=== PATIENT | male | born 1995 | race Caucasian/White ===

== ENCOUNTER 2024-02-15 14:21 | Emergency (ER) | payer MEDICAID, SELFPAY ==
[2024-02-15 14:23] VITALS: BP 99/61; PULSE 102; RESP 18; TEMP 38; O2SAT 98; BMI 21.0
--- NOTE | 2024-02-15 14:51 | EDS_ITS ---
HPI History of Present Illness Chief Complaint: Sore Throat Informant: patient and parent Narrative Narrative: 28 year old male presenting to ED with concern for sorethroat. Pt began with sore throat on Thursday and has worsening. He developed fever. Last tylenol about 1 hour ago. No cough or rash. Pt went to urgent care where he was seen and there was concern for [employer]. PFSH PFSH Medical History Thyroid cancer Home Medications ?Medication ?Instructions ?Recorded ?Last Taken ?Type amoxicillin 400 mg-potassium 10.9375 ml PO Q12H 10 days #218.75 02/15/24 Unknown Rx clavulanate 57 mg/5 mL oral mL suspension Allergy/AdvReac Type Severity Reaction Status Date / Time No Known Allergies Allergy Verified 02/15/24 14:23 Surgical History History of thyroidectomy Social History Smoking Status: Current every day smoker tobacco type: cigarettes and e- cigarettes ROS ROS ED Constitutional Constitutional ED: Reports fever(s); Denies chills or weight loss Eyes Eyes: Denies change in vision or diplopia ENT ENT ED: Reports sore throat; Denies ear pain or rhinorrhea Cardiovascular Cardiovascular: Denies chest pain, orthopnea, palpitations or racing heartbeat Respiratory/Chest Respiratory/Chest: Denies cough, dyspnea or orthopnea Gastrointestinal Gastrointestinal: Denies abdominal pain, diarrhea, nausea or vomiting Genitourinary Genitourinary ED: Denies dysuria, hematuria or urinary frequency Musculoskeletal Musculoskeletal: Denies arthralgias or myalgias Integumentary Denies abscess or rash Neurologic Neurologic: Denies headache(s) or weakness Psychiatric Psychiatric: Denies anxiety, depression, suicidal ideation or suicidal thoughts Endocrine Endocrinology: Denies polydipsia, polyphagia or polyuria Allergic/Immunologic Allergic/Immunologic ED: Denies mouth swelling, tongue swelling or urticaria EXAM Physical Exam Const Vital Signs: 02/15/24 14:23 02/15/24 14:23 02/15/24 15:22 Temperature 100.4 F H 100.4 F H 100.4 F H Temperature Source Oral Oral Oral Pulse Rate 102 H 102 H 100 Respiratory Rate 18 18 16 Blood Pressure 99/61 99/61 101/67 Blood Pressure Mean 73 73 78 Pulse Ox 98 98 97 Oxygen Delivery Method Room Air Room Air Room Air 02/15/24 15:22 Temperature 100.4 F H Temperature Source Oral Pulse Rate 100 Respiratory Rate 16 Blood Pressure 101/67 Blood Pressure Mean 78 Pulse Ox 97 Oxygen Delivery Method Room Air Positive well nourished and well developed General Appearance ED: well developed HEENT Reports normocephalic, head/scalp atraumatic, TM's clear and moist mucous me mbranes HEENT Narrative: R>L tonisllar swelling with bilateral tonsillar exudates. No [employer] or RPA seen. No drooling. Tonsils do not touch uvula. No palatal petechiae. Scattered anterior lymph nodes <1 cm and mobile. Tympanic Membrane ED: Yes TM's clear Eyes PERRL and EOMs intact bilaterally Neck no lymphadenopathy, supple and no JVD Resp normal respiratory effort and clear to auscultation bilaterally Cardio regular rate, regular rhythm and no murmurs GI normal to inspection, nondistended, normoactive bowel sounds and non-tender Palpation: soft Back/Spine no CVA tenderness and normal ROM Extremity normal to inspection General Extremety ED: Negative for edema General Extremity: Negative for edema Neuro oriented x3 and CN's II-XII intact bilaterally Sensorium / Orientation: alert Motor Exam: strength 5/5 throughout Psych mental status grossly normal Mood & Affect: Negative for depressed or tearful Skin no rashes or lesions noted and no wounds MDM MDM MDM Narrative Medical decision making narrative: Differential diagnosis includes but not limited to [employer]/RPA, mononucleosis, tonsillitis, Patient's white count 11.9 hemoglobin 11.4 platelet count of 188. Monocytes 8.6 neutrophils 83.8 lymphocytes 7.0 monoscreen is negative (this is day 4 of illness) rapid strep was obtained which is negative. Patient received IV Decadron and Toradol. He also received an oral dose of Augmentin. Clinically I think the patient has a bacterial tonsillitis. Continue Tylenol or Motrin for fever control encourage oral hydration History & Record Review Discussion w/independent historian: Patient and Family Lab Data Attestation: I reviewed the patient's lab results. Labs: Laboratory Results - last 24 hr 02/15/24 02/15/24 14:36 14:45 WBC 11.9 H RBC 3.66 L Hgb 11.4 L Hct 33.6 L MCV 91.8 MCH 31.1 MCHC 33.9 RDW Std Deviation 39.1 RDW Coeff of Mike 11.5 L Plt Count 188 MPV 9.8 Immature Gran % (Auto) 0.400 Neut % (Auto) 83.8 H Lymph % (Auto) 7.0 L Addison % (Auto) 8.6 Eos % (Auto) 0.0 Baso % (Auto) 0.2 Absolute Neuts (auto) 10.0 H Absolute Lymphs (auto) 0.83 Nucleated RBC % 0 Monoscreen Negative Discharge Plan Triage Chief Complaint: Sore Throat ED Provider: Sourav Jama Dx/Rx/DC Orders Clinical Impression: Acute tonsillitis, Throat pain Instructions: Tonsillitis in Adults Prescriptions: New amoxicillin-pot clavulanate 400-57 mg/5 mL suspension for reconstitution 10.9375 ml PO Q12H 10 Days Qty: 218.75 0RF Primary Care Provider: Care Physician,No Primary Referrals: Len Arnold MD [Med Staff - Active Staff] - 1 Week if not improving Care Physician,No Primary [Primary Care Provider] - Print Language: [place] Disposition Disposition: Home, Self Care
[2024-02-15] MEDS: Ketorolac 30 MG/ML Syringe IV (15:04)
[2024-02-15] MEDS: dexAMETHasone 10 MG/ML Vial IV (15:04)
[2024-02-15 15:07] LABS: Absolute Lymphocyte Count 0.83 X10^3/uL (0.83-4.51); Basophil# 0.02 X10^3/uL; Basophil% 0.2 % (0-1); Hematocrit 33.6 % (40-54); Hemoglobin 11.4 g/dL (13.0-16.5); Lymphocyte # 0.83 X10^3/ul (0.83-4.51); Mean Corp Hgb Conc 33.9 g/dL (32-36); Mean Corpuscular Hgb 31.1 pg (27.0-32.0); Mean Corpuscular Volume 91.8 fL (80-94); Mean Platelet Vol. 9.8 fl (6.2-12.0); Monocyte# 1.03 X10^3/uL; Monocyte% 8.6 % (0-10); NRBC Flagged by Analyzer 0 % (0-5); Neutrophil # 9.99 X10^3/uL (2.7-7.7); Neutrophil % 83.8 % (47-70); Platelet Count 188 K/mm3 (150-450); RBC Distribution Width CV 11.5 % (11.6-14.6); RBC Distribution Width SD 39.1 fl (35.1-43.9); Red Blood Count 3.66 M/mm3 (4.6-6.2); White Blood Count 11.9 K/mm3 (4.4-11.0)
[2024-02-15 15:22] VITALS: BP 101/67; PULSE 100; RESP 16; TEMP 38; O2SAT 97
[2024-02-15 15:22] LABS: Internal QC Validated? YES +Cl - CLEAR BKGD; Monotest Negative (Negative)
[2024-02-15] MEDS: Amox/Clav 400mg/5ml Susp 875 MG PO (15:22)
[2024-02-15 15:24] LABS: Record Kit Lot#, Mono 13241033
[2024-02-15 16:27] VITALS: BP 101/64; PULSE 77; RESP 16; TEMP 37.2; O2SAT 98
== END 2024-02-15 16:32 | disposition home or self-care (01) ==
PROVIDERS: Emergency Provider Emergency Medicine; Visit Provider Emergency Medicine
DX: J03.90 Acute tonsillitis, unspecified (principal); F17.210 Nicotine dependence, cigarettes, uncomplicated; F17.290 Nicotine dependence, other tobacco product, uncomplicated
CPT/HCPCS: 85025; 86308; 87651; 96374; 96375; 99283; A4216